=== PATIENT | male | born 1990 | race African-American/Black ===

== ENCOUNTER 2018-11-05 11:08 | Emergency (ER) | payer OTHER ==
[~2018-11-05] VITALS: Ht 195.6 cm; Wt 107.5 kg
[2018-11-05 11:15] VITALS: BP 142/99
== END 2018-11-05 11:42 | disposition home or self-care (01) ==
LOC: ER 11:12
DX: J70.5 Respiratory conditions due to smoke inhalation (principal)

== ENCOUNTER 2022-09-18 03:00 | Emergency (ER) | payer SELFPAY ==
[~2022-09-18] VITALS: Ht 177.8 cm; Wt 131.5 kg
--- NOTE | 2022-09-18 03:15 | NUR ---
JOSU[facility] C/O GLF REDNESS TO FOREHEAD & NOSE. -LOC.
[2022-09-18] MEDS ORDERED: ONDANSETRON 4 MG TAB.RAPDIS ONE (03:26)
--- NOTE | 2022-09-18 03:27 | NUR ---
[employer] AT PT'S BEDSIDE
--- NOTE | 2022-09-18 03:27 | NUR ---
[employer] at bedside talking to pt.
[2022-09-18] MEDS ORDERED: ONDANSETRON 4 MG TAB.RAPDIS PO ONE (03:30)
[2022-09-18 07:12] VITALS: BP 106/63
--- NOTE | 2022-09-18 07:12 | NUR ---
Patient discharged to home in stable condition. Written and verbal after care instructions given. Patient verbalizes understanding of instruction.
== END 2022-09-18 07:12 | disposition home or self-care (01) ==
LOC: ER 03:10
DX: S00.81XA Abrasion of other part of head, initial encounter (principal); F12.10 Cannabis abuse, uncomplicated; R51.9 Headache, unspecified; X58.XXXA Exposure to other specified factors, initial encounter; Y93.89 Activity, other specified; Y92.89 Other specified places as the place of occurrence of the external cause; Y99.8 Other external cause status
CPT/HCPCS: 99284; 70450; Q0162

== ENCOUNTER 2022-09-27 10:55 | Emergency (ER) | payer MEDICAID ==
[~2022-09-27] VITALS: Ht 195.6 cm; Wt 131.5 kg
--- NOTE | 2022-09-27 11:25 | NUR ---
SENT FROM [facility] FOR BP OF 171/113 TODAY. PT IS ASYMPTOMATIC.
--- NOTE | 2022-09-27 11:30 | NUR ---
AT BEDSIDE FOR EVAL
[2022-09-27 11:47] VITALS: BP 171/99
--- NOTE | 2022-09-27 11:48 | NUR ---
Patient discharged to home in stable condition. Written and verbal after care instructions given. Patient verbalizes understanding of instruction.
== END 2022-09-27 11:48 | disposition home or self-care (01) ==
LOC: ER 11:06
DX: I10 Essential (primary) hypertension (principal)